=== PATIENT | male | born 1960 ===

== ENCOUNTER 2017-07-23 10:03 | Emergency (ER) | payer OTHER ==
[2017-07-23 10:16] VITALS: TEMP 98.2
--- NOTE | 2017-07-23 11:53 | C.PDOC ---
History Of Present Illness 56 y/o male presents to the ER complaining of pain and swelling to the left side of the neck which has been present for the past 1 month. Patient states that he does not have a PMD. He admits to tobacco use and alcohol use. Patient denies having fever, chills, and other complaints at this time. Time Seen by Provider: 07/23/17 10:24 Chief Complaint (Nursing): ENT Problem History Per: Patient History/Exam Limitations: no limitations Onset/Duration Of Symptoms: Days Current Symptoms Are (Timing): Still Present Severity: Moderate Past Medical History Reviewed: Historical Data, Nursing Documentation, Vital Signs Vital Signs: Last Vital Signs Temp 98.2 F 07/23/17 14:58 Pulse 81 07/23/17 14:58 Resp 16 07/23/17 14:58 BP 150/79 07/23/17 14:58 Pulse Ox 97 07/23/17 19:47 - Medical History PMH: HTN Surgical History: No Surg Hx Family History: States: No Known Family Hx - Social History Hx Tobacco Use: Yes Hx Alcohol Use: Yes Hx Substance Use: No - Immunization History Hx Tetanus Toxoid Vaccination: No Hx Influenza Vaccination: No Hx Pneumococcal Vaccination: No Review Of Systems Except As Marked, All Systems Reviewed And Found Negative. Constitutional: Negative for: Fever, Chills Musculoskeletal: Positive for: Neck Pain Physical Exam - Physical Exam Appears: Non-toxic, No Acute Distress Skin: Normal Color, Warm, Other (significant firm, non-mobile mass to right side of neck with mild erythema) Head: Atraumatic, Normacephalic Eye(s): bilateral: Normal Inspection Ear(s): Bilateral: Normal Nose: Normal Oral Mucosa: Moist Throat: Normal, No Erythema, No Exudate Neck: Supple, Other (significant firm, non-mobile mass to right side of neck with mild erythema) Chest: Symmetrical Cardiovascular: Rhythm Regular Respiratory: Normal Breath Sounds, No Rales, No Rhonchi, No Wheezing Gastrointestinal/Abdominal: Normal Exam, Soft, No Tenderness Extremity: Normal ROM Neurological/Psych: Oriented x3, Normal Speech ED Course And Treatment - Laboratory Results Result Diagrams: 07/23/17 11:51 07/23/17 11:51 O2 Sat by Pulse Oximetry: 97 (RA) Pulse Ox Interpretation: Normal - Other Rad CXR X-Ray: Viewed By Me, Read By Radiologist Interpretation: PROCEDURE: CHEST RADIOGRAPH, 1 VIEW. HISTORY: Left neck mass. COMPARISON: . Correlation made with concurrent CT scan neck which also imaged both lung apices the. FINDINGS: LUNGS: Mild biapical pleural thickening. Small on bullous changes right lung apex less well seen compared to high-resolution CT scan. Similarly, emphysematous changes upper lobe predominance also seen to better advantage on prior CT scan. Mild bibasilar atelectasis left greater than right. Developing lower lobe infiltrate could be excluded with followup radiographs. PLEURA: No pneumothorax or pleural fluid seen. CARDIOVASCULAR: Normal. OSSEOUS STRUCTURES: No significant abnormalities. VISUALIZED UPPER ABDOMEN: Normal. OTHER FINDINGS: None. IMPRESSION: Mild biapical pleural thickening. Small on bullous changes right lung apex less well seen compared to high-resolution CT scan. Similarly, emphysematous changes upper lobe predominance also seen to better advantage on prior CT scan. Mild bibasilar atelectasis left greater than right. Developing lower lobe infiltrate could be excluded with followup radiographs. - CT Scan/US NECK AND CHEST CT Other Rad Studies (CT/US): Read By Radiologist, Radiology Report Reviewed CT/US Interpretation: Accession No. : [id number]. Patient Name / ID : FRANKLYN SINGH / [id number]. Exam Date : 07/23/2017 12:39:23 ( Approved ) . Study Comment : Sex / Age : M / 56Y. Creator : Sha Cerda MD. Dictator : Patient Monitor : Pouncing Lathe Operator : Sha Cerda MD. Approver2 : Report Date : 07/23/2017 13:54:16. My Comment : . PROCEDURE: CT scan neck dated 07/15/2017. HISTORY: Left neck mass. COMPARISON: None. TECHNIQUE : Contiguous helical/ transaxial sections of the neck with intravenous contrast. Coronal and sagittal reformats generated. Intravenous contrast dose: 100 cc Visipaque 320. Radiation dose: DLP 591.65 mGy-cm. This CT exam was performed using one or more of the following dose reduction techniques: Automated exposure control, adjustment of the mA and/or kV according to patient size, and/or use of iterative reconstruction technique. . FINDINGS: The current study reveals the presence of a large somewhat elliptical shaped mass lesion in the left aspect of the neck that measures approximately 5.2cc x 4.8t x 4.8cc cm. This lesion extends from the level of the angle of the mandible inferiorly to approximately C5-C6 level. Lesion exhibits a peripheral thick rind of irregular enhancement and low-attenuation centrally consistent with either cystic degeneration or necrosis. Findings are felt to represent a large conglomeration of metastatic necrotic adenopathy (possibly secondary to squamous cell carcinoma). . There is appear to be at least 2 or 3 smaller partially necrotic lymph nodes, the largest measuring approximately 17.5 mm adjacent to the posterior superior margin of the aforementioned large mass lesion and dorsal to the left parotid gland. The left submandibular gland is displaced anteromedial in location. . There is also on posteromedial displacement of the left neural vascular bundle. There is an ill-defined bulky appearance of the left palatine tonsil region; rule out primary carcinoma in this location. Vallecula is asymmetric likely due to encroaching lingual tonsil and some residual and or retained secretion. Free margin of the epiglottis is not well delineated though appears grossly unremarkable. Aryepiglottic folds and pyriform sinuses are normal. The slight medial position of the right true vocal cord. There also appears to be a small right- sided internal laryngocele . The salivary glands otherwise unremarkable. There appear to be at least 2 small low-attenuation lesions with in the left lobe thyroid gland. Followup thyroid ultrasound could be performed for further evaluation. Partially calcified atherosclerotic plaque seen along both common carotid arteries and carotid bifurcations right more significant than the left. Poor dentition with prominent large on lucency in the right aspect of the mandible which may have represented a large radicular cyst of since removed tooth. Clinical correlation recommended. Mild multilevel degenerative spondylosis of the cervical spine. There is mild kyphotic angulation deformity centered at the C5-C6 level. Emphysematous changes both lung apices and upper lobes with linear scarring left upper lobe. There also appear to be small bullous changes seen in the right lung apex. IMPRESSION: There is a large necrotic mass in the left aspect of the neck most likely representing a conglomeration of metastatic adenopathy. There is also at least 1 or 2 smaller adjacent to the superior margin of this lesion. Bulky appearance of the left palatine tonsil region. Rule out the primary carcinoma in this location. The large on necrotic lesion exerts surrounding mass effect as above. Two small low -attenuation foci left lobe thyroid gland. Followup thyroid ultrasound. Emphysematous changes lung apices and upper lobes with small bullous changes right lung apex. Progress Note: Labs, UA, CXR, and CT- Neck w/ IV Contrast ordered. Case was d/w ENT home companion Dr. Alexandra who came down to ED, evaluated patient at bedside, referred him to [facility] Head/neck oncology nurse navigator. also contacted head and neck oncologist and give her patient's contact information. Disposition - Disposition Referrals: Dominique Venegas MD [Medical Doctor] - Disposition: HOME/ ROUTINE Disposition Time: 14:34 Condition: STABLE Additional Instructions: FOLLOW UP WITH HEAD/NECK ONCOLOGIST DR.EVELYNE VENEGAS WITHIN 2-3 DAYS. CALL ON TUESDAY FOR AN APPOINTMENT. GO TO [facility] ER IF CAN'T MAKE AN APPOINTMENT WITHIN 2 WEEKS. Forms: [employer] (Welsh), Gen Discharge Inst Welsh - Clinical Impression Clinical Impression: Neck mass - PA / REGULATOR TESTER / Resident Statement MD/DO has reviewed & agrees with the documentation as recorded. - Scribe Statement The provider has reviewed the documentation as recorded by the Anabell Dowell Provider Attestation All medical record entries made by the Anabell were at my direction and personally dictated by me. I have reviewed the chart and agree that the record accurately reflects my personal performance of the history, physical exam, medical decision making, and the department course for this patient. I have also personally directed, reviewed, and agree with the discharge instructions and disposition.
[2017-07-23 11:54] LABS: BASO # 0.1 K/uL (0.0-0.2); BASO % 0.7 % (0.0-2.0); EOS # 0.1 K/uL (0.0-0.7); HEMOGLOBIN 15.7 g/dL (12.0-18.0); LYMPH # 2.1 K/uL (1.0-4.3); LYMPH % 16.7 % (20.0-40.0); MEAN CELL VOLUME 101.9 fL (80.0-94.0); MEAN CORPUSCULAR HEMOGLOBIN 35.4 pg (27.0-31.0); MEAN CORPUSCULAR HGB CONC 34.8 g/dL (33.0-37.0); MEAN PLATELET VOLUME 9.2 fL (7.2-11.7); MONO # 1.4 K/uL (0.0-0.8); MONO % 11.6 % (0.0-10.0); NEUT # 8.6 K/uL (1.8-7.0); RBC 4.43 Mil/uL (4.40-5.90); RED CELL DISTRIBUTION WIDTH 14.2 % (11.5-14.5); WHITE BLOOD COUNT 12.3 K/uL (4.8-10.8)
[2017-07-23 12:02] LABS: PROTHROMBIN TIME 11.8 SECONDS (9.7-12.2)
[2017-07-23 12:07] LABS: URINE BILIRUBIN NEGATIVE (NEGATIVE); URINE BLOOD 1+ (NEGATIVE); URINE CLARITY Clear (Clear); URINE COLOR Yellow (YELLOW); URINE GLUCOSE (UA) NORMAL (Normal); URINE LEUKOCYTE ESTERASE NEG Leu/uL (Negative); URINE PROTEIN NEGATIVE (NEGATIVE)
[2017-07-23 12:12] LABS: ALB/GLOB RATIO 1.1 (1.0-2.1); ALBUMIN 4.1 g/dL (3.5-5.0); ALT/SGPT 7 U/L (21-72); AMYLASE 73 U/L (30-110); AST/SGOT 22 U/L (17-59); BLOOD UREA NITROGEN 12 mg/dL (9-20); CALCIUM 9.2 mg/dl (8.6-10.4); GFR AFRICAN-AMERICAN > 60; GFR NON-AFRICAN AMERICAN > 60; LIPASE 54 U/L (23-300)
[2017-07-23 12:21] LABS: BARBITURATES, UR NEGATIVE (NEGATIVE); BENZODIAZEPINES, UR NEGATIVE (NEGATIVE); OPIATES, UR NEGATIVE (NEGATIVE); PHENCYCLIDINE, UR NEGATIVE (NEGATIVE)
[2017-07-23] MEDS ORDERED: Iodixanol 320 MG/ML 100 ML BOTTLE IV ONE (12:46)
--- NOTE | 2017-07-23 13:56 | CT ---
PROCEDURE: CT scan neck dated 07/15/2017 HISTORY: Left neck mass COMPARISON: None TECHNIQUE: Contiguous helical/ transaxial sections of the neck with intravenous contrast. Coronal and sagittal reformats generated. Intravenous contrast dose: 100 cc Visipaque 320 Radiation dose: DLP 591.65 mGy-cm This CT exam was performed using one or more of the following dose reduction techniques: Automated exposure control, adjustment of the mA and/or kV according to patient size, and/or use of iterative reconstruction technique. . FINDINGS: The current study reveals the presence of a large somewhat elliptical shaped mass lesion in the left aspect of the neck that measures approximately 5.2cc x 4.8t x 4.8cc cm. This lesion extends from the level of the angle of the mandible inferiorly to approximately C5-C6 level. Lesion exhibits a peripheral thick rind of irregular enhancement and low-attenuation centrally consistent with either cystic degeneration or necrosis. Findings are felt to represent a large conglomeration of metastatic necrotic adenopathy (possibly secondary to squamous cell carcinoma). . There is appear to be at least 2 or 3 smaller partially necrotic lymph nodes, the largest measuring approximately 17.5 mm adjacent to the posterior superior margin of the aforementioned large mass lesion and dorsal to the left parotid gland. The left submandibular gland is displaced anteromedial in location. . There is also on posteromedial displacement of the left neural vascular bundle. There is an ill-defined bulky appearance of the left palatine tonsil region; rule out primary carcinoma in this location. Vallecula is asymmetric likely due to encroaching lingual tonsil and some residual and or retained secretion. Free margin of the epiglottis is not well delineated though appears grossly unremarkable. Aryepiglottic folds and pyriform sinuses are normal. The slight medial position of the right true vocal cord. There also appears to be a small right-sided internal laryngocele . The salivary glands otherwise unremarkable. There appear to be at least 2 small low-attenuation lesions with in the left lobe thyroid gland. Followup thyroid ultrasound could be performed for further evaluation. Partially calcified atherosclerotic plaque seen along both common carotid arteries and carotid bifurcations right more significant than the left. Poor dentition with prominent large on lucency in the right aspect of the mandible which may have represented a large radicular cyst of since removed tooth. Clinical correlation recommended. Mild multilevel degenerative spondylosis of the cervical spine. There is mild kyphotic angulation deformity centered at the C5-C6 level. Emphysematous changes both lung apices and upper lobes with linear scarring left upper lobe. There also appear to be small bullous changes seen in the right lung apex IMPRESSION: There is a large necrotic mass in the left aspect of the neck most likely representing a conglomeration of metastatic adenopathy. There is also at least 1 or 2 smaller adjacent to the superior margin of this lesion. Bulky appearance of the left palatine tonsil region. Rule out the primary carcinoma in this location. The large on necrotic lesion exerts surrounding mass effect as above. Two small low-attenuation foci left lobe thyroid gland. Followup thyroid ultrasound. Emphysematous changes lung apices and upper lobes with small bullous changes right lung apex.
--- NOTE | 2017-07-23 14:58 | RAD ---
PROCEDURE: CHEST RADIOGRAPH, 1 VIEW HISTORY: Left neck mass COMPARISON: . Correlation made with concurrent CT scan neck which also imaged both lung apices the FINDINGS: LUNGS: Mild biapical pleural thickening. Small on bullous changes right lung apex less well seen compared to high-resolution CT scan. Similarly, emphysematous changes upper lobe predominance also seen to better advantage on prior CT scan. Mild bibasilar atelectasis left greater than right. Developing lower lobe infiltrate could be excluded with followup radiographs. PLEURA: No pneumothorax or pleural fluid seen. CARDIOVASCULAR: Normal. OSSEOUS STRUCTURES: No significant abnormalities. VISUALIZED UPPER ABDOMEN: Normal. OTHER FINDINGS: None. IMPRESSION: Mild biapical pleural thickening. Small on bullous changes right lung apex less well seen compared to high-resolution CT scan. Similarly, emphysematous changes upper lobe predominance also seen to better advantage on prior CT scan. Mild bibasilar atelectasis left greater than right. Developing lower lobe infiltrate could be excluded with followup radiographs.
[2017-07-23 15:00] VITALS: BP 150/79; PULSE 81; RESP 16
[2017-07-23 16:35] VITALS: O2SAT 97
--- NOTE | 2017-07-24 00:21 | CON ---
DATE: 07/23/2017 REQUESTING PHYSICIAN: In the emergency room. REASON FOR CONSULTATION: Neck mass. HISTORY: This is a 56-year-old male who presents to the ER with a one-month history of left neck mass with no pain. The mass is mild to moderate in size. There is no dysphagia, no hoarseness. PAST MEDICAL HISTORY: As noted in the chart by me. MEDICATIONS: As noted in the chart by me. PHYSICAL EXAMINATION: HEAD: Atraumatic and normocephalic. FACE: Good facial movements bilaterally. CONSTITUTIONAL: Well fed, well nourished. COMMUNICATION: Communicates well and appropriately. EXTERNAL NOSE AND EARS: No masses. No lesions. No erythema. No edema. INTERNAL NOSE: Deviated septum. No masses. No lesions. No erythema. No edema. ORAL CAVITY AND OROPHARYNX: No masses. No lesions. No erythema. No edema. LIPS AND GUMS: No masses. No lesions. No erythema. No edema. NECK: There is a enlarged neck mass, level 2/3 on the left. LYMPH NODES: Lymphadenopathy of the neck on the left, 2/3. THYROID: No thyromegaly. No goiter. LABORATORY DATA: CAT scan was done which showed there is possible tonsillar lesion and lymphadenopathy in the left, level 2/3. ASSESSMENT: 1. Deviated septum . 2. The patient may have cancer with metastasis to the lymph nodes. PLAN : The patient was made aware that he may have cancer with metastasis to the lymph nodes. The patient was told that he needs to be seen at [facility] by Dr. Venegas within 2 weeks. I gave the patient Dr. Venegas's phone number and I told him that if he does not get to see her within 2 weeks ago to go to the emergency room at [facility]. I also gave the patient's phone number to Dr. Venegas and asked her to see him within 2 weeks. Jovanny Alexandra MD MTDRyan
== END 2017-07-23 14:58 | disposition home or self-care (01) ==
LOC: C.ER 10:03
DX: R22.1 Localized swelling, mass and lump, neck (principal); I10 Essential (primary) hypertension; F17.210 Nicotine dependence, cigarettes, uncomplicated
CPT/HCPCS: 70491; 71045; 80053; 80320; 80324; 80345; 80346; 80349; 80353; 80358; 80361; 81001; 82150; 83690; 83735; 83992; 85025; 85610; 85730; 99284; Q9967

== ENCOUNTER 2017-10-20 08:07 | Inpatient (IN) | payer MEDICAID, OTHER ==
[2017-10-20] MEDS ORDERED: Sodium Chloride 0.9% 1,000 ML IV ONE ×2 (08:41→13:20)
--- NOTE | 2017-10-20 08:53 | C.PDOC ---
History Of Present Illness Patient BIBA from home for evaluation of bleeding from neck wound/mass. As per patient's daughter, he was diagnosed with head/neck necrotic mass June 2017 at [facility]. Patient has been going to [facility] in [place] daily for chemo and radiation; radiation oncologist is Dr. Alexander Terry. She states the mass typically bleeds, but since yesterday the bleeding was much heavier so she called 911. Patient is scheduled to receive PEG today at [facility], has been unable to tolerate PO recently due to mass. Time Seen by Provider: 10/20/17 08:11 Chief Complaint (Nursing): Abnormal Skin Integrity History Per: EMS, Family (daughter at bedside) History/Exam Limitations: clinical condition Onset/Duration Of Symptoms: Hrs Current Symptoms Are (Timing): Still Present Quality Of Symptoms: Painful, Other (bleeding ) Severity: Moderate Past Medical History Reviewed: Historical Data, Nursing Documentation, Vital Signs Vital Signs: Last Vital Signs Temp 97.7 F 10/20/17 18:15 Pulse 93 H 10/21/17 03:00 Resp 16 10/21/17 03:00 BP 117/72 10/21/17 02:11 Pulse Ox 100 10/21/17 00:00 - Medical History PMH: Denies: HTN (DAUGHTER DENIES) Other PMH: malignancy- left sided neck necrotic mass Family History: States: No Known Family Hx - Social History Hx Tobacco Use: Yes Hx Alcohol Use: No (FORMER) Hx Substance Use: No - Immunization History Hx Tetanus Toxoid Vaccination: No Hx Influenza Vaccination: No Hx Pneumococcal Vaccination: No Review Of Systems Constitutional: Negative for: Fever, Chills Cardiovascular: Negative for: Chest Pain, Palpitations Respiratory: Negative for: Cough, Shortness of Breath Gastrointestinal: Negative for: Nausea, Vomiting, Abdominal Pain, Diarrhea Skin: Positive for: Other (necrotic left neck mass, bleeding ) Neurological: Negative for: Headache, Dizziness Physical Exam - Physical Exam Appears: Non-toxic, In Acute Distress (in mild pain ), Chronically Ill, Other ( cachectic ) Skin: Other (left sided large necrotic mass, approx 10x7cm, mild oozing in center, malodorous, no purulent discharge ) Head: Normacephalic Eye(s): bilateral: Normal Inspection Oral Mucosa: Dry Cardiovascular: Rhythm Regular Respiratory: Normal Breath Sounds, No Rales, No Rhonchi, No Wheezing Gastrointestinal/Abdominal: Normal Exam, Bowel Sounds, Soft, No Tenderness Extremity: Bilateral: Atraumatic, Normal ROM Neurological/Psych: Oriented x3 ED Course And Treatment - Laboratory Results Result Diagrams: 10/20/17 09:25 10/20/17 17:09 O2 Sat by Pulse Oximetry: 100 (RA) Pulse Ox Interpretation: Normal - Radiology CXR: Interpreted by Me, Viewed By Me CXR Interpretation: Yes: No Acute Disease. No: Infiltrates Progress Note: Blood work ordered and reviewed. Patient given IV NS bolus, IV morphine. Wound dressed by me with surgicel x2, clean gauze and kerlex. Patient tolerated well. Wound rebleeds when tourqniquet applied to left arm - left arm restricted. 10:20AM- Spoke with patient's radiation oncologist Dr. Alexander Terry, he recommends tranfusion and discharge to [facility]. Since patient is to sick for discharge, recommends I call his medcial oncologist Dr. Joana Hope at her cell in order to set up transfer. Called , message left and pending call back. 12:00PM- Multiple calls placed to [facility] to reach Dr. Hope. She is currently in a procedure, message left in her nurse's answering service - pending call back. 1 :00PM- Patient had larger episode of bleeding from neck wound, lost approx 200ml bright red blood. Bleeding controlled now. Spoke with spreading machine operator, CTA neck/head, IV antibiotics, IV fluids ordered. Spoke with Dr. Jimenez, agrees with admission to his service. Dr. Mittal spoken with and aware, has seen patient in ED. Critical Care Time - Critical Care Note Total Time (in mins): 60 Documented critical care: time excludes all time spent performing seperately billable procedures. Disposition - Disposition Disposition: HOSPITALIZED Disposition Time: 12:59 Condition: GUARDED - Clinical Impression Clinical Impression: Oropharyngeal cancer, Severe anemia, Bleeding from wound Decision To Admit - Pt Status Changed To: Hospital Disposition Of: Inpatient - Admit Certification Admit to Inpatient:: After my assessment, the patient will require hospitalization for at least two midnights. This is because of the severity of symptoms shown, intensity of services needed, and/or the medical risk in this patient being treated as an outpatient. - InPatient: Physician Admission Certification: I certify that this patient requires 2 or more midnights of care for the following reason:: see notes - . Bed Request Type: ICU Admitting Physician: Fabien Jimenez Jr. Patient Diagnosis: Oropharyngeal cancer, Bleeding from wound, Severe anemia
[2017-10-20 09:36] LABS: BASO # 0.1 K/uL (0.0-0.2); BASO % 0.4 % (0.0-2.0); LYMPH # 0.8 K/uL (1.0-4.3); LYMPH % 2.5 % (20.0-40.0); MEAN CORPUSCULAR HEMOGLOBIN 31.3 pg (27.0-31.0); MEAN CORPUSCULAR HGB CONC 32.6 g/dL (33.0-37.0); MEAN PLATELET VOLUME 8.9 fL (7.2-11.7); MONO # 0.7 K/uL (0.0-0.8); MONO % 2.1 % (0.0-10.0); NEUT # 30.1 K/uL (1.8-7.0); RED CELL DISTRIBUTION WIDTH 14.2 % (11.5-14.5)
[2017-10-20] MEDS ORDERED: Sodium Chloride 0.9% 1,000 ML ONE (09:39)
[2017-10-20] MEDS ORDERED: Morphine 4 MG/ML VIAL ONE ×3 (09:39→20:16)
[2017-10-20 09:40] LABS: PLATELET COUNT 519 K/uL (130-400); WHITE BLOOD COUNT 31.7 K/uL (4.8-10.8)
[2017-10-20 09:44] LABS: PROTHROMBIN TIME 10.5 SECONDS (9.7-12.2)
[2017-10-20 09:53] LABS: ALB/GLOB RATIO 1.1 (1.0-2.1); ALBUMIN 2.9 g/dL (3.5-5.0); ALT/SGPT 27 U/L (21-72); AST/SGOT 13 U/L (17-59); BLOOD UREA NITROGEN 22 mg/dL (9-20); CALCIUM 8.5 mg/dl (8.6-10.4); GFR AFRICAN-AMERICAN > 60; GFR NON-AFRICAN AMERICAN > 60
[2017-10-20 10:05] LABS: BANDS 1 % (0-2); LYMPHOCYTE 2 % (20-40); MONOCYTE 1 % (0-10); NEUTROPHIL 96 % (50-75); TOTAL CELLS COUNTED 100
[2017-10-20 10:06] LABS: ANISOCYTOSIS SLIGHT; PLATELET ESTIMATE INCREASED (NORMAL); POIKILOCYTOSIS SLIGHT
[2017-10-20 10:07] LABS: BURR CELLS SLIGHT; HYPOCHROMIC MODERATE; OVALOCYTES SLIGHT
[2017-10-20 10:08] LABS: POLYCHROMIC SLIGHT
[2017-10-20] MEDS ORDERED: Absorbable Gelatin Sponge Size 12-7 ONE (11:52)
[2017-10-20] MEDS ORDERED: Vancomycin 1 GM 1 GM/250 ML BAG IV STA (12:54)
[2017-10-20] MEDS ORDERED: Piperacillin/Tazobact 3.375 gm 100 ML IV STA (12:55)
--- NOTE | 2017-10-20 13:00 | RAD ---
Date of service: 10/20/2017 PROCEDURE: CHEST RADIOGRAPH, 1 VIEW HISTORY: LEUKOCYTOSIS COMPARISON: Chest radiograph dated 07/23/2017. FINDINGS: LUNGS: Biapical pleural-parenchymal scarring with bullous changes. PLEURA: No pneumothorax or pleural fluid seen. CARDIOVASCULAR: Atherosclerotic aortic calcifications. Cardiomediastinal silhouette within normal limits. OSSEOUS STRUCTURES: Unchanged. VISUALIZED UPPER ABDOMEN: Normal. OTHER FINDINGS: None. IMPRESSION: No active disease.
[2017-10-20] MEDS ORDERED: Piperacill/Tazo 3.375gm in Dex 3.375 GM/50 ML BAG IVPB STA (13:07)
[2017-10-20] MEDS ORDERED: Vancomycin 1 gm/NS 200 ml 1 GM/200 ML BAG IVPB STA (13:07)
[2017-10-20] MEDS ORDERED: Iodixanol 320 MG/ML 100 ML BOTTLE IV ONE (13:34)
--- NOTE | 2017-10-20 13:50 | CP.PCM.CON ---
History of Present Illness - History of Present Illness History of Present Illness: 56 y/o male with Pmx of neck cancer being treatd with cisplatin based chemo presents to [facility] with c/o left sided neck bleeding from a necrosis which is open. Patient has large necrotic lesion, ~6 cm in diameter. with no skin structure, only dark clot and granulation tissue. Patient denies any dizziness, denies any abdominal pain, denies any chest pain. 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) - PSYCHIATRIC Hx Substance Use: No - SURGICAL HISTORY Hx Surgeries: No - ANESTHESIA Hx Anesthesia: No Meds Allergies/Adverse Reactions: Allergies Allergy/AdvReac Type Severity Reaction Status Date / Time No Known Allergies Allergy Verified 10/20/17 08:17 - Medications Medications: Current Medications Vancomycin/Sodium Chloride (Vancomycin 1 Gm/Ns 200 Ml) 1 gm in 200 mls @ 166.667 mls/hr IVPB STAT STA PRN Reason: Protocol Stop: 10/20/17 14:18 Sodium Chloride (Sodium Chloride 0.9%) 1,000 mls @ 1,000 mls/hr IV .Q1H ONE Stop: 10/20/17 14:19 Physical Exam - Head Exam Head Exam: NORMOCEPHALIC - Eye Exam Eye Exam: EOMI Pupil Exam: PERRL - ENT Exam ENT Exam: Mucous Membranes Moist - Neck Exam Additional comments: large necrotic lesion with dark clot and granulation tissue. - Respiratory Exam Respiratory Exam: Clear to Auscultation Bilateral, NORMAL BREATHING PATTERN - Cardiovascular Exam Cardiovascular Exam: REGULAR RHYTHM, +S1, +S2, +S4 - GI/Abdominal Exam GI & Abdominal Exam: Normal Bowel Sounds, Soft - Extremities Exam Extremities exam: Positive for: normal inspection, pedal edema Results - Vital Signs Recent Vital Signs: Last Vital Signs Temp 98 F 10/20/17 11:40 Pulse 80 10/20/17 11:40 Resp 16 10/20/17 11:40 BP 122/59 L 10/20/17 11:40 Pulse Ox 100 10/20/17 13:17 - Labs Result Diagrams: 10/20/17 09:25 10/20/17 09:25 Labs: Laboratory Results - last 24 hr 10/20/17 10/20/17 10/20/17 09:25 09:25 09:25 WBC 31.7 H D RBC 1.90 L Hgb 6.0 L* D Hct 18.3 L MCV 96.0 H D MCH 31.3 H MCHC 32.6 L RDW 14.2 Plt Count 519 H D MPV 8.9 Neut % (Auto) 95.0 H Lymph % (Auto) 2.5 L [place] % (Auto) 2.1 Eos % (Auto) 0.0 Baso % (Auto) 0.4 Neut # (Auto) 30.1 H Lymph # (Auto) 0.8 L [place] # (Auto) 0.7 Eos # (Auto) 0.0 Baso # (Auto) 0.1 Neutrophils % (Manual) 96 H Band Neutrophils % 1 Lymphocytes % (Manual) 2 L Monocytes % (Manual) 1 Platelet Estimate Increased H Polychromasia Slight Hypochromasia (manual) Moderate Poikilocytosis (manual Slight Anisocytosis (manual) Slight Ovalocytes Slight Bobbi Cells Slight PT 10.5 INR 1.0 APTT 25 Sodium 129 L Potassium 5.8 H Chloride 94 L Carbon Dioxide 19 L Anion Gap 22 H BUN 22 H Creatinine 1.1 Est GFR ( Amer) > 60 Est GFR (Non-Af Amer) > 60 Random Glucose 158 H Calcium 8.5 L Total Bilirubin 0.3 AST 13 L D ALT 27 Alkaline Phosphatase 73 Total Protein 5.4 L Albumin 2.9 L D Globulin 2.6 Albumin/Globulin Ratio 1.1 Blood Type Blood Type Confirm Antibody Screen 10/20/17 09:25 WBC RBC Hgb Hct MCV MCH MCHC RDW Plt Count MPV Neut % (Auto) Lymph % (Auto) [place] % (Auto) Eos % (Auto) Baso % (Auto) Neut # (Auto) Lymph # (Auto) [place] # (Auto) Eos # (Auto) Baso # (Auto) Neutrophils % (Manual) Band Neutrophils % Lymphocytes % (Manual) Monocytes % (Manual) Platelet Estimate Polychromasia Hypochromasia (manual) Poikilocytosis (manual Anisocytosis (manual) Ovalocytes [place] Cells PT INR APTT Sodium Potassium Chloride Carbon Dioxide Anion Gap BUN Creatinine Est GFR ( Amer) Est GFR (Non-Af Amer) Random Glucose Calcium Total Bilirubin AST ALT Alkaline Phosphatase Total Protein Albumin Globulin Albumin/Globulin Ratio Blood Type B POSITIVE Blood Type Confirm B POSITIVE Antibody Screen Negative Assessment & Plan - Assessment and Plan (Free Text) Assessment: Left neck necrotic tissue: patient has open wound with granulation tissue, suspect invading into a venous structure. No active bright red blood spurting, vascular eval, will place dressing and continue to monitor. Wound healing by 2nd intention. -Chronic anemia: Transfuse blood to keep hb/hct >8/24 -Sepsis: 2nd open skin wound, would ponce culture, start vanco + zosyn, serial lactic, not requiring pressors. -Hyperpotassemia: check EKG,, start calcium gluconate IV, repeat chemistry, suspect hemolysis -keep NPO -wound care -DVT ppx scds -PUD ppx protonix. Patient's prognosis is poor given the large necrotic open wound which seems to be chronic with signs of granulation tissue (radiation related necrosis with possible invasion into a vessel resulting in bleeding. d/w daughter at bedside. Patient's heme/onc Dr. is Dr. Joana Hope - Date & Time Date: 10/20/17 Time: 14:13
[2017-10-20] MEDS ORDERED: Thrombin Topical 20,000 Intl Units Spray Kit TOP ONE (14:14)
[2017-10-20] MEDS ORDERED: Sodium Chloride 0.9% 1,000 ML IV SCH (14:15)
[2017-10-20] MEDS ORDERED: Thrombin Topical 5,000 Int Units Spray Kit ONE (14:20)
[2017-10-20] MEDS ORDERED: Calcium Chloride 1000 mg/10 ml Syringe IV ONE (14:23)
--- NOTE | 2017-10-20 15:06 | CT ---
PROCEDURE: CTA HEAD AND NECK WITH CONTRAST HISTORY: NECK TUMOR BLEEDING COMPARISON: None available. TECHNIQUE: Initial noncontrast head CT was performed. Subsequently, CT angiogram of the head and neck were performed after the intravenous administration of 80 mL of Omnipaque 350. Contiguous 1.5mm thick images were obtained in the axial plane of the neck. 2-D coronal and sagittal MPR images were obtained. Imaging postprocessing was performed with 3-D images also obtained. A delayed contrast head CT was also obtained. This CT exam was performed using one or more of the following dose reduction techniques: Automated exposure control, adjustment of the mA and/or kV according to patient size, and/or use of iterative reconstruction technique. Contrast dose: 100 mL Visipaque 320 Radiation dose: Total exam DLP = 487.20 mGy-cm. FINDINGS: HEAD: Right: The intracranial internal carotid artery, and anterior and middle cerebral arteries are widely patent. Left: The intracranial internal carotid artery, and anterior and middle cerebral arteries are widely patent. Posterior circulation: The visualized intracranial vertebral arteries, basilar artery and posterior cerebral arteries are widely patent. There is no endoluminal filling defect to suggest thrombus. There is no intracranial saccular aneurysm. NECK: There is a three vessel aortic arch. There is no stenosis at the origins of the great vessels at the level of the aortic arch. There are atherosclerotic calcifications in the common carotid arteries, carotid bulbs and right proximal internal carotid artery without evidence for luminal narrowing. Right Carotid: On the right, the common carotid, internal carotid and external carotid arteries are widely patent. There is no hemodynamically significant stenosis in the internal carotid artery by NASCET criteria. Left Carotid: On the left, the common carotid, internal carotid and external carotid arteries are widely patent.There is no hemodynamically significant stenosis in the internal carotid arteries. There is no hemodynamically significant stenosis in the internal carotid artery by NASCET criteria. The vertebral arteries are widely patent. The right vertebral artery is hypoplastic, an anatomic variant. Incompletely characterized is a large necrotic tumor in the left neck extending to the lateral parapharyngeal space with mild displacement of the lateral pharyngeal wall to the right. No evidence of encasement of the arteries. The left internal jugular vein is not visualized. Normal right external jugular vein. IMPRESSION: 1. No evidence of endoluminal thrombus,occlusion or definite significant stenosis in the intracranial arteries. 2. No evidence of hemodynamically significant stenosis in the internal carotid arteries. 3. Patent bilateral vertebral arteries. 4. Large necrotic tumor in the left neck extending to the lateral pharyngeal space with displacement of the airway to the right without evidence for airway narrowing or encasement of the vessels. The left internal jugular vein is not visualized and may be thrombus or surgically absent. Clinical follow-up is advised.
--- NOTE | 2017-10-20 15:53 | CP.PCM.HP ---
<Marion Christopher - Last Filed: 10/20/17 21:30> History of Present Illness - History of Present Illness History of Present Illness: 56 yo M w/PMHx significant for oropharyngeal cancer diagnosed 07/23/2017( currently on chemo and being treated at [facility]) admitted to ICU for left sided bleeding neck lesion. Pt states lesion typically bleeds and subsides, however came to ED due to excessive and prolonged bleed x2 days. Lesion is on left lateral neck, approx 6x8cm, actively bleeding, granulation tissue exposed w/ no overlying skin. Hgb on admission 6.0 Present on Admission - Present on Admission Any Indicators Present on Admission: No Review of Systems - Constitutional Constitutional: absent: Anorexia, Headache - EENT Nose/Mouth/Throat: Neck Pain, Neck Mass. 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) - MUSCULOSKELETAL/RHEUMATOLOGICAL Hx Falls: Yes - PSYCHIATRIC Hx Substance Use: No - SURGICAL HISTORY Hx Surgeries: No - ANESTHESIA Hx Anesthesia: No Meds Allergies/Adverse Reactions: Allergies Allergy/AdvReac Type Severity Reaction Status Date / Time No Known Allergies Allergy Verified 10/20/17 08:17 Physical Exam - Constitutional Appears: Non-toxic - Head Exam Head Exam: ATRAUMATIC, NORMAL INSPECTION, NORMOCEPHALIC - Eye Exam Eye Exam: EOMI - Neck Exam Neck exam: Positive for: Tenderness - Respiratory Exam Respiratory Exam: Clear to Auscultation Bilateral, NORMAL BREATHING PATTERN - Cardiovascular Exam Cardiovascular Exam: REGULAR RHYTHM - GI/Abdominal Exam GI & Abdominal Exam: Normal Bowel Sounds, Soft - Neurological Exam Neurological exam: Alert, Oriented x3 Results - Vital Signs Recent Vital Signs: Last Vital Signs Temp 98 F 10/20/17 13:30 Pulse 84 10/20/17 13:30 Resp 17 10/20/17 13:44 BP 135/68 10/20/17 13:30 Pulse Ox 98 10/20/17 13:30 - Labs Result Diagrams: 10/20/17 09:25 10/20/17 17:09 Labs: Laboratory Results - last 24 hr 10/20/17 10/20/17 10/20/17 09:25 09:25 09:25 WBC 31.7 H D RBC 1.90 L Hgb 6.0 L* D Hct 18.3 L MCV 96.0 H D MCH 31.3 H MCHC 32.6 L RDW 14.2 Plt Count 519 H D MPV 8.9 Neut % (Auto) 95.0 H Lymph % (Auto) 2.5 L [place] % (Auto) 2.1 Eos % (Auto) 0.0 Baso % (Auto) 0.4 Neut # (Auto) 30.1 H Lymph # (Auto) 0.8 L [place] # (Auto) 0.7 Eos # (Auto) 0.0 Baso # (Auto) 0.1 Neutrophils % (Manual) 96 H Band Neutrophils % 1 Lymphocytes % (Manual) 2 L Monocytes % (Manual) 1 Platelet Estimate Increased H Polychromasia Slight Hypochromasia (manual) Moderate Poikilocytosis (manual Slight Anisocytosis (manual) Slight Ovalocytes Slight [place] Cells Slight PT 10.5 INR 1.0 APTT 25 Sodium 129 L Potassium 5.8 H Chloride 94 L Carbon Dioxide 19 L Anion Gap 22 H BUN 22 H Creatinine 1.1 Est GFR ( Amer) > 60 Est GFR (Non-Af Amer) > 60 Random Glucose 158 H Calcium 8.5 L Total Bilirubin 0.3 AST 13 L D ALT 27 Alkaline Phosphatase 73 Total Protein 5.4 L Albumin 2.9 L D Globulin 2.6 Albumin/Globulin Ratio 1.1 Blood Type Blood Type Confirm Antibody Screen 10/20/17 09:25 WBC RBC Hgb Hct MCV MCH MCHC RDW Plt Count MPV Neut % (Auto) Lymph % (Auto) [place] % (Auto) Eos % (Auto) Baso % (Auto) Neut # (Auto) Lymph # (Auto) [place] # (Auto) Eos # (Auto) Baso # (Auto) Neutrophils % (Manual) Band Neutrophils % Lymphocytes % (Manual) Monocytes % (Manual) Platelet Estimate Polychromasia Hypochromasia (manual) Poikilocytosis (manual Anisocytosis (manual) Ovalocytes [place] Cells PT INR APTT Sodium Potassium Chloride Carbon Dioxide Anion Gap BUN Creatinine Est GFR ( Amer) Est GFR (Non-Af Amer) Random Glucose Calcium Total Bilirubin AST ALT Alkaline Phosphatase Total Protein Albumin Globulin Albumin/Globulin Ratio Blood Type B POSITIVE Blood Type Confirm B POSITIVE Antibody Screen Negative Assessment & Plan - Assessment and Plan (Free Text) Assessment: 56 yo M w/ oropharyngeal cancer Neuro: -on morphine drip CV: hemodynamically unstable -IVF -PRBC D/C, pt is comfort care Pulm: 2L NC GI: -NPO Heme/Onc: Acute blood loss anemia -to be transfused 7U today -NS@75 -Ligation attempted. Hemostasis attempted. Carotid found to be completely eroded. D/C, pt is comfort care Ppx -protonix -SCDs Goal of care: -Daughter decided to make patient DNR/DNI -after continued bleeding and 7U PRBC transfused, daughter and sister decided to make pt comfort care. All interventions were discontinued and morphine drip begun DNR/DNI -Pt is comfort care Case discussed w/ Dr. Salvador Christopher PGY1 - Date & Time Date: 10/20/17 Time: 21:31 Decision To Admit - Pt Status Changed To: Hospital Disposition Of: Inpatient - Admit Certification Admit to Inpatient:: After my assessment, the patient will require hospitalization for at least two midnights. This is because of the severity of symptoms shown, intensity of services needed, and/or the medical risk in this patient being treated as an outpatient. - InPatient: Physician Admission Certification:: admit pt - . Bed Request Type: ICU <Jose Bob - Last Filed: 10/21/17 00:36> Results - Vital Signs Recent Vital Signs: Last Vital Signs Temp 97.7 F 10/20/17 18:15 Pulse 94 H 10/20/17 23:23 Resp 18 10/20/17 23:23 BP 95/59 L 10/20/17 23:23 Pulse Ox 100 10/20/17 23:00 - Labs Result Diagrams: 10/20/17 09:25 10/20/17 17:09 Labs: Laboratory Results - last 24 hr 10/20/17 10/20/17 10/20/17 09:25 09:25 09:25 WBC 31.7 H D RBC 1.90 L Hgb 6.0 L* D Hct 18.3 L MCV 96.0 H D MCH 31.3 H MCHC 32.6 L RDW 14.2 Plt Count 519 H D MPV 8.9 Neut % (Auto) 95.0 H Lymph % (Auto) 2.5 L [place] % (Auto) 2.1 Eos % (Auto) 0.0 Baso % (Auto) 0.4 Neut # (Auto) 30.1 H Lymph # (Auto) 0.8 L [place] # (Auto) 0.7 Eos # (Auto) 0.0 Baso # (Auto) 0.1 Neutrophils % (Manual) 96 H Band Neutrophils % 1 Lymphocytes % (Manual) 2 L Monocytes % (Manual) 1 Platelet Estimate Increased H Polychromasia Slight Hypochromasia (manual) Moderate Poikilocytosis (manual Slight Anisocytosis (manual) Slight Ovalocytes Slight [place]bi Cells Slight PT 10.5 INR 1.0 APTT 25 Sodium 129 L Potassium 5.8 H Chloride 94 L Carbon Dioxide 19 L Anion Gap 22 H BUN 22 H Creatinine 1.1 Est GFR ( Amer) > 60 Est GFR (Non-Af Amer) > 60 Random Glucose 158 H Lactic Acid Calcium 8.5 L Total Bilirubin 0.3 AST 13 L D ALT 27 Alkaline Phosphatase 73 Total Protein 5.4 L Albumin 2.9 L D Globulin 2.6 Albumin/Globulin Ratio 1.1 Blood Type Blood Type Confirm Antibody Screen 10/20/17 10/20/17 10/20/17 09:25 17:09 17:09 WBC RBC Hgb Hct MCV MCH MCHC RDW Plt Count MPV Neut % (Auto) Lymph % (Auto) [place] % (Auto) Eos % (Auto) Baso % (Auto) Neut # (Auto) Lymph # (Auto) [place] # (Auto) Eos # (Auto) Baso # (Auto) Neutrophils % (Manual) Band Neutrophils % Lymphocytes % (Manual) Monocytes % (Manual) Platelet Estimate Polychromasia Hypochromasia (manual) Poikilocytosis (manual Anisocytosis (manual) Ovalocytes [place]bi Cells PT INR APTT Sodium 127 L Potassium 6.4 H* Chloride 98 Carbon Dioxide 23 Anion Gap 12 BUN 25 H Creatinine 1.2 Est GFR ( Amer) > 60 Est GFR (Non-Af Amer) > 60 Random Glucose 118 H Lactic Acid 1.5 Calcium 7.7 L Total Bilirubin 0.6 AST 8 L D ALT 27 Alkaline Phosphatase 57 Total Protein 4.4 L Albumin 2.2 L D Globulin 2.2 Albumin/Globulin Ratio 1.0 Blood Type B POSITIVE Blood Type Confirm B POSITIVE Antibody Screen Negative Attending/Attestation - Attestation I have personally seen and examined this patient.: Yes I have fully participated in the care of the patient.: Yes I have reviewed all pertinent clinical information: Yes Notes (Text): 10/21/17 00:33 Patient was bleeding from carotid artery 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 The patient declared himself DNR/DNI. Surgical intervention will not be possible, nor will it help or change the course of his grave prognosis. The patient started bleeding, and a suture was placed at bedside, by Dr. Franco, with successful stabilization of bleeding. The family declared they didn't want any further intervention, so he was made comfort care and started on a morphine drip.
[2017-10-20] MEDS ORDERED: Morphine 4 MG/ML VIAL IV PRN (16:21)
--- NOTE | 2017-10-20 17:04 | RAD ---
Date of service: 10/20/2017 HISTORY: PICC Line Insertion COMPARISON: Chest radiograph performed approximately 4 hours prior. FINDINGS: LUNGS: Biapical pleural-parenchymal scarring with bullous changes. PLEURA: No significant pleural effusion identified, no pneumothorax apparent. CARDIOVASCULAR: Atherosclerotic aortic calcifications. Cardiomediastinal silhouette within normal limits. OSSEOUS STRUCTURES: Unchanged. VISUALIZED UPPER ABDOMEN: Normal. OTHER FINDINGS: New right upper extremity PICC with catheter tip in the SVC. IMPRESSION: New right upper extremity PICC in satisfactory position.
[2017-10-20 17:39] LABS: ALBUMIN 2.2 g/dL (3.5-5.0); ALT/SGPT 27 U/L (21-72); AST/SGOT 8 U/L (17-59); BLOOD UREA NITROGEN 25 mg/dL (9-20); CALCIUM 7.7 mg/dl (8.6-10.4); GFR AFRICAN-AMERICAN > 60; GFR NON-AFRICAN AMERICAN > 60
[2017-10-20] MEDS ORDERED: Sod Polystyrene Sulf 15 gm/60 ml Susp PO ONE (17:53)
[2017-10-20] MEDS ORDERED: Piperacill/Tazo 3.375gm in Dex 3.375 GM/50 ML BAG IVPB SCH (18:00)
[2017-10-20] MEDS ORDERED: DOPamine 400mg/250ml D5W 400 MG/250 ML BAG IV ONE (18:07)
--- NOTE | 2017-10-20 18:21 | CP.PCM.CON ---
History of Present Illness - History of Present Illness History of Present Illness: Vascular Surgery Consult Note for Dr. Mittal 56 year old male with a past medical history of oropharyngeal cancer diagnosed on 07/23/17 and being treated with chemotherapy (cisplatin) at [facility], was seen and evaluated at [facility]'s Emergency Department for an actively bleeding large, left sided neck lesion. Nurse was applying direct pressure to the area when we arrived. Prior, he was complaining of difficulty breathing and gurgling for which intubation was being set up; however, the bleeding was controlled and he was breathing spontaneously without difficulty thus intubation was aborted. He has had this area bleed in the past but not this profusely. The lesion itself shows exposed soft tissue with necrosis. It has been causing swallowing difficulties and he can no longer tolerate food by mouth. He was scheduled for PEG placement at [facility] today. Denies any f/c, n/v/d, dyspnea, cough, CP, or abdominal pain. His radiation oncologist is Dr. Alexander Terry. PMH: see above PSH: none ALL: NKDA Soc: Denies t/a/d Review of Systems - Constitutional Constitutional: Weight Loss, Weakness. absent: Chills, Fever - EENT Eyes: absent: Blurred Vision, Change in Vision Nose/Mouth/Throat: Dysphagia, Neck Pain, Neck Mass. absent: Nasal Congestion, Nasal Discharge - Cardiovascular Cardiovascular: absent: Chest Pain, Dyspnea - Respiratory Respiratory: absent: Cough, Dyspnea - Gastrointestinal Gastrointestinal: absent: Abdominal Pain, Nausea, Vomiting - Genitourinary Genitourinary: absent: Difficulty Urinating, Dysuria - Musculoskeletal Musculoskeletal: Neck Pain. 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) - MUSCULOSKELETAL/RHEUMATOLOGICAL Hx Falls: Yes - PSYCHIATRIC Hx Substance Use: No - SURGICAL HISTORY Hx Surgeries: No - ANESTHESIA Hx Anesthesia: No Meds Allergies/Adverse Reactions: Allergies Allergy/AdvReac Type Severity Reaction Status Date / Time No Known Allergies Allergy Verified 10/20/17 08:17 - Medications Medications: Current Medications Sodium Chloride (Sodium Chloride 0.9%) 1,000 mls @ 75 mls/hr IV .[id number] [facility] Last Admin: 10/20/17 14:30 Dose: 75 mls/hr Piperacillin Sod/Tazobactam Sod (Zosyn 3.375 Gm Iv Premix) 3.375 gm in 50 mls @ 100 mls/hr IVPB Q6H FELICITA PRN Reason: Protocol Last Admin: 10/20/17 17:42 Dose: 100 mls/hr Morphine Sulfate (Morphine) 4 mg IV Q6 PRN PRN Reason: Pain, severe (8-10) Physical Exam - Constitutional Appears: In Acute Distress, Chronically Ill - Head Exam Head Exam: ATRAUMATIC, NORMAL INSPECTION, NORMOCEPHALIC - Neck Exam Neck exam: Positive for: Tenderness. Negative for: Normal Inspection Additional comments: 6x8cm lesion on the left lateral side of the neck with exposed granulation tissue and muscle - Respiratory Exam Respiratory Exam: Clear to Auscultation Bilateral, NORMAL BREATHING PATTERN - Cardiovascular Exam Cardiovascular Exam: REGULAR RHYTHM, +S1, +S2 - GI/Abdominal Exam GI & Abdominal Exam: Normal Bowel Sounds, Soft. absent: Tenderness Results - Vital Signs Recent Vital Signs: Last Vital Signs Temp 98 F 10/20/17 13:30 Pulse 87 10/20/17 15:54 Resp 13 10/20/17 15:54 BP 115/69 10/20/17 15:54 Pulse Ox 99 10/20/17 15:54 - Labs Result Diagrams: 10/20/17 09:25 10/20/17 17:09 Labs: Laboratory Results - last 24 hr 10/20/17 10/20/17 10/20/17 09:25 09:25 09:25 WBC 31.7 H D RBC 1.90 L Hgb 6.0 L* D Hct 18.3 L MCV 96.0 H D MCH 31.3 H MCHC 32.6 L RDW 14.2 Plt Count 519 H D MPV 8.9 Neut % (Auto) 95.0 H Lymph % (Auto) 2.5 L [place] % (Auto) 2.1 Eos % (Auto) 0.0 Baso % (Auto) 0.4 Neut # (Auto) 30.1 H Lymph # (Auto) 0.8 L [place] # (Auto) 0.7 Eos # (Auto) 0.0 Baso # (Auto) 0.1 Neutrophils % (Manual) 96 H Band Neutrophils % 1 Lymphocytes % (Manual) 2 L Monocytes % (Manual) 1 Platelet Estimate Increased H Polychromasia Slight Hypochromasia (manual) Moderate Poikilocytosis (manual Slight Anisocytosis (manual) Slight Ovalocytes Slight [place] Cells Slight PT 10.5 INR 1.0 APTT 25 Sodium 129 L Potassium 5.8 H Chloride 94 L Carbon Dioxide 19 L Anion Gap 22 H BUN 22 H Creatinine 1.1 Est GFR ( Amer) > 60 Est GFR (Non-Af Amer) > 60 Random Glucose 158 H Lactic Acid Calcium 8.5 L Total Bilirubin 0.3 AST 13 L D ALT 27 Alkaline Phosphatase 73 Total Protein 5.4 L Albumin 2.9 L D Globulin 2.6 Albumin/Globulin Ratio 1.1 Blood Type Blood Type Confirm Antibody Screen 10/20/17 10/20/17 10/20/17 09:25 17:09 17:09 WBC RBC Hgb Hct MCV MCH MCHC RDW Plt Count MPV Neut % (Auto) Lymph % (Auto) [place] % (Auto) Eos % (Auto) Baso % (Auto) Neut # (Auto) Lymph # (Auto) [place] # (Auto) Eos # (Auto) Baso # (Auto) Neutrophils % (Manual) Band Neutrophils % Lymphocytes % (Manual) Monocytes % (Manual) Platelet Estimate Polychromasia Hypochromasia (manual) Poikilocytosis (manual Anisocytosis (manual) Ovalocytes [place] Cells PT INR APTT Sodium 127 L Potassium 6.4 H* Chloride 98 Carbon Dioxide 23 Anion Gap 12 BUN 25 H Creatinine 1.2 Est GFR ( Amer) > 60 Est GFR (Non-Af Amer) > 60 Random Glucose 118 H Lactic Acid 1.5 Calcium 7.7 L Total Bilirubin 0.6 AST 8 L D ALT 27 Alkaline Phosphatase 57 Total Protein 4.4 L Albumin 2.2 L D Globulin 2.2 Albumin/Globulin Ratio 1.0 Blood Type B POSITIVE Blood Type Confirm B POSITIVE Antibody Screen Negative Assessment & Plan - Assessment and Plan (Free Text) Assessment: 56M w/ oropharyngeal cancer presenting w/ bleeding neck mass Plan: This patient's cancer has likely eroded in and around the major neck vasculature including carotids He is not a candidate for any vascular surgery procedures No surgical intervention Grant Bynum PGY1
[2017-10-20] MEDS ORDERED: niCARdipine IV 25 MG in Sodium Chloride 0.9% 240 ML IV SCH (19:45)
[2017-10-20] MEDS ORDERED: Morphine 4 MG/ML VIAL IVP STA (20:00)
[2017-10-20] MEDS ORDERED: Midazolam 2 MG/2 ML VIAL ONE ×2 (20:26→20:33)
[2017-10-20] MEDS ORDERED: Morphine Sulfate 250 MG in Dextrose 5% In Water 240 ML IV PRN (20:26)
[2017-10-20] MEDS ORDERED: Midazolam 2 MG/2 ML VIAL IV ONE (20:30)
[2017-10-20 21:17] VITALS: TEMP 97.7
[2017-10-20 23:35] VITALS: O2SAT 100
[2017-10-21 03:26] VITALS: BP 117/72; PULSE 93; RESP 16
--- NOTE | 2017-10-21 03:50 | CP.PCM.PRO ---
Pronouncement of Note - Clinical Findings Physical Exam: No Response Verbal/Painful Stimuli, Absent Peripheral Pulses{ Carotid & Femoral}, Absent Heart & Breath Sounds, No Pupillary Light Reflex, No Corneal Reflex, Pupils Fixed & Dilated, Absence of Vital Signs - Pronouncement Time Time of Pronouncement of : 03:59 - Notifications Pronouncement Notifications: Family Notified, Atending Notified Food Service Clerk Notified: No - Autopsy Autopsy Requested: No - [place] [id number]
--- NOTE | 2017-10-21 03:53 | CP.PCM.DIS ---
Provider - Provider Date of Admission: 10/20/17 12:59 Attending physician: Fabien Jimenez Jr, MD Time Spent in preparation of Discharge (in minutes): 55 Hospital Course - Lab Results Lab Results: Most Recent Lab Values WBC 31.7 K/uL (4.8-10.8) H D 10/20/17 09:25 RBC 1.90 Mil/uL (4.40-5.90) L 10/20/17 09:25 Hgb 6.0 g/dL (12.0-18.0) L* D 10/20/17 09:25 Hct 18.3 % (35.0-51.0) L 10/20/17 09:25 MCV 96.0 fL (80.0-94.0) H D 10/20/17 09:25 MCH 31.3 pg (27.0-31.0) H 10/20/17 09:25 MCHC 32.6 g/dL (33.0-37.0) L 10/20/17 09:25 RDW 14.2 % (11.5-14.5) 10/20/17 09:25 Plt Count 519 K/uL (130-400) H D 10/20/17 09:25 MPV 8.9 fL (7.2-11.7) 10/20/17 09:25 Neut % (Auto) 95.0 % (50.0-75.0) H 10/20/17 09:25 Lymph % (Auto) 2.5 % (20.0-40.0) L 10/20/17 09:25 [place] % (Auto) 2.1 % (0.0-10.0) 10/20/17 09:25 Eos % (Auto) 0.0 % (0.0-4.0) 10/20/17 09:25 Baso % (Auto) 0.4 % (0.0-2.0) 10/20/17 09:25 Neut # (Auto) 30.1 K/uL (1.8-7.0) H 10/20/17 09:25 Lymph # (Auto) 0.8 K/uL (1.0-4.3) L 10/20/17 09:25 [place] # (Auto) 0.7 K/uL (0.0-0.8) 10/20/17 09:25 Eos # (Auto) 0.0 K/uL (0.0-0.7) 10/20/17 09:25 Baso # (Auto) 0.1 K/uL (0.0-0.2) 10/20/17 09:25 Neutrophils % (Manual) 96 % (50-75) H 10/20/17 09:25 Band Neutrophils % 1 % (0-2) 10/20/17 09:25 Lymphocytes % (Manual) 2 % (20-40) L 10/20/17 09:25 Monocytes % (Manual) 1 % (0-10) 10/20/17 09:25 Platelet Estimate Increased (NORMAL) H 10/20/17 09:25 Polychromasia Slight 10/20/17 09:25 Hypochromasia (manual) Moderate 10/20/17 09:25 Poikilocytosis (manual Slight 10/20/17 09:25 Anisocytosis (manual) Slight 10/20/17 09:25 Ovalocytes Slight 10/20/17 09:25 [place] Cells Slight 10/20/17 09:25 PT 10.5 SECONDS (9.7-12.2) 10/20/17 09:25 INR 1.0 10/20/17 09:25 APTT 25 SECONDS (21-34) 10/20/17 09:25 Sodium 127 mmol/L (132-148) L 10/20/17 17:09 Potassium 6.4 mmol/L (3.6-5.2) H* 10/20/17 17:09 Chloride 98 mmol/L (98-107) 10/20/17 17:09 Carbon Dioxide 23 mmol/L (22-30) 10/20/17 17:09 Anion Gap 12 (10-20) 10/20/17 17:09 BUN 25 mg/dL (9-20) H 10/20/17 17:09 Creatinine 1.2 mg/dL (0.8-1.5) 10/20/17 17:09 Est GFR ( Amer) > 60 10/20/17 17:09 Est GFR (Non-Af Amer) > 60 10/20/17 17:09 Random Glucose 118 mg/dL (75-110) H 10/20/17 17:09 Lactic Acid 1.5 mmol/L (0.7-2.1) 10/20/17 17:09 Calcium 7.7 mg/dl (8.6-10.4) L 10/20/17 17:09 Total Bilirubin 0.6 mg/dL (0.2-1.3) 10/20/17 17:09 AST 8 U/L (17-59) L D 10/20/17 17:09 ALT 27 U/L (21-72) 10/20/17 17:09 Alkaline Phosphatase 57 U/L (38-126) 10/20/17 17:09 Total Protein 4.4 g/dL (6.3-8.3) L 10/20/17 17:09 Albumin 2.2 g/dL (3.5-5.0) L D 10/20/17 17:09 Globulin 2.2 gm/dL (2.2-3.9) 10/20/17 17:09 Albumin/Globulin Ratio 1.0 (1.0-2.1) 10/20/17 17:09 Blood Type B POSITIVE 10/20/17 09:25 Blood Type Confirm B POSITIVE 10/20/17 09:25 Antibody Screen Negative 10/20/17 09:25 - Hospital Course Hospital Course: Upon admission: 56 yo M w/PMHx significant for oropharyngeal cancer diagnosed 07/23/2017( currently on chemo and being treated at [facility]) admitted to ICU for left sided bleeding neck lesion. Lesion is on left lateral neck, approx 6x8cm, actively bleeding, granulation tissue exposed w/ no overlying skin. Pt states lesion typically bleeds and subsides, however came to ED due to excessive and prolonged bleed x2 days. Hgb on admission 6.0 56 y/o male with Pmx of neck cancer being treatd with cisplatin based chemo presents to [facility] with c/o Throughout Hospital Course: 56 yo M w/ oropharyngeal cancer Neuro: -on morphine drip CV: hemodynamically unstable -IVF -PRBC D/C, pt is comfort care Pulm: 2L NC GI: -NPO Heme/Onc: Acute blood loss anemia -to be transfused 7U today -NS@75 -Ligation attempted. Hemostasis attempted. Carotid found to be completely eroded. Pt is comfort care Ppx -protonix -SCDs Goal of care: - Daughter decided to make patient DNR/DNI - After continued bleeding and 7U PRBC transfused, daughter and sister decided to make pt comfort care. All interventions were discontinued and morphine drip begun DNR/DNI -Pt is comfort care Time of : 10/21/17 3:59am Discharge Exam - Additional Findings Additional findings: Discharge Plan - Follow Up Plan Condition:
--- NOTE | 2017-10-21 12:37 | CARD ---
APPROVED REPORT Date of service: 10/20/2017 EKG Measurement Heart [id number] [id number] [id number] <Conclusion> Sinus rhythm with occasional premature ventricular complexes Low voltage QRS Borderline ECG
== END 2017-10-21 03:59 | DRG 64 ==
LOC: C.ER 08:07 → C.9E 12:59 → C.9I 13:23
PROVIDERS: ADMIT Internal Medicine; ATTEND Internal Medicine
PROC: 02HV33Z Insertion of Infusion Device into Superior Vena Cava, Percutaneous Approach (ICD-10-PCS; principal; 2017-10-20)
DX: C10.9 Malignant neoplasm of oropharynx, unspecified (principal); E87.5 Hyperkalemia; D62 Acute posthemorrhagic anemia; R13.10 Dysphagia, unspecified; Z51.5 Encounter for palliative care; Z66 Do not resuscitate; Z87.891 Personal history of nicotine dependence; Z92.21 Personal history of antineoplastic chemotherapy; Z68.1 Body mass index [BMI] 19.9 or less, adult